=== PATIENT | female | born 2000 | race American Indian/Alaskan Native ===

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

== ENCOUNTER 2020-06-03 23:34 | Emergency (ER) | payer SELFPAY ==
[2020-06-03 23:56] VITALS: BP 125/66
== END 2020-06-04 00:49 | disposition left against medical advice (07) ==
LOC: ED 23:34
DX: R11.2 Nausea with vomiting, unspecified (principal); Z53.21 Procedure and treatment not carried out due to patient leaving prior to being seen by health care provider